=== PATIENT | female | born 1965 | race Caucasian/White ===

== ENCOUNTER 2019-08-06 17:36 | Emergency (ER) | payer OTHER ==
[2019-08-06 19:37] VITALS: BP 164/97
== END 2019-08-06 19:27 | disposition left against medical advice (07) ==
LOC: ED 17:36
DX: R10.2 Pelvic and perineal pain (principal); Z53.21 Procedure and treatment not carried out due to patient leaving prior to being seen by health care provider
CPT/HCPCS: 99281

== ENCOUNTER 2019-08-07 16:15 | Emergency (ER) | payer OTHER ==
--- NOTE | 2019-08-07 17:00 | ED ---
Abdominal Pain/Female - HPI Summary HPI Summary: 53 year old F presenting to [facility] complains of RLQ pain that radiates around hips and vaginal burning since a few days ago. Patient reports increased urge to urine, nausea, and decreased appetite. Patient denies vaginal discharge. Pt was at [facility] [employer] in a hot tub a week ago and believes this might have caused her Sx. She was prescribed Macrobid, which provided no relief, from her physician in [place] who thought she had a UTI. Her abd pain developed days after her urinary symptoms. Pt reports Hx of fibromyalgia for which she takes Cymbalta. She is also on a diet pill since a year ago and furosemide for her BP. The patient rates the pain 6/10 in severity. Symptoms aggravated by nothing. Symptoms alleviated by nothing. Medications reviewed. Allergies noted. - History of Current Complaint Chief Complaint: EDAbdPain Stated Complaint: ABD AND BACK PAIN PER PT Time Seen by Provider: 08/07/19 16:34 Hx Obtained From: Patient Hx Last Menstrual Period: 10/14/15 Onset/Duration: Lasting Days, Still Present Timing: Constant Severity Currently: Moderate Pain Intensity: 6 Pain Scale Used: 0-10 Numeric Location: Discrete At: RLQ Radiates: Yes Radiates to: Other - Hip Aggravating Factor(s): Nothing Alleviating Factor(s): Nothing Associated Signs and Symptoms: Positive: Urinary Symptoms - Increased urge for urination, Decreased Appetite, Nausea, Other: - Burning sensation in vagina. Negative: Vaginal Discharge Allergies/Adverse Reactions: Allergies Allergy/AdvReac Type Severity Reaction Status Date / Time ciprofloxacin [From Cipro] Allergy Hives Verified 08/06/19 18:00 cumin Allergy Hives Verified 08/06/19 18:00 Penicillins Allergy Hives Verified 08/06/19 18:00 Home Medications: Home Medications Furosemide TAB* [Lasix TAB*] 20 mg PO DAILY PRN 08/07/19 [History Confirmed ] Nitrofurantoin Macrocrystals* [Macrodantin 100 mg*] 100 mg PO BID 08/07/19 [ History Confirmed 08/07/19] Phentermine HCl 37.5 mg PO QAM 08/07/19 [History Confirmed 08/07/19] PMH/Surg Hx/FS Hx/Imm Hx Previously Healthy: Yes Endocrine/Hematology History: Reports: Hx Diabetes Denies: Hx Systemic Lupus Erythematosus, Hx Thyroid Disease Cardiovascular History: Reports: Hx Hypertension Denies: Hx Congestive Heart Failure, Hx Pacemaker/ICD, Hx Peripheral Vascular Disease Respiratory History: Reports: Hx Asthma Denies: Hx Chronic Obstructive Pulmonary Disease (COPD) GI History: Denies: Hx Ulcer History: Denies: Hx Dialysis, Hx Renal Disease Musculoskeletal History: Denies: Hx Arthritis, Hx Rheumatoid Arthritis, Hx Osteoporosis, Hx Scoliosis Sensory History: Denies: Hx Cataracts, Hx Contacts or Glasses, Hx Glaucoma, Hx Hearing Aid Opthamlomology History: Denies: Hx Cataracts, Hx Contacts or Glasses, Hx Glaucoma Neurological History: Denies: Hx Headaches, Hx Seizures, Hx Transient Ischemic Attacks (TIA), Other Neuro Impairments/Disorders Psychiatric History: Denies: Hx Anxiety, Hx Depression, Hx Panic Disorder - Cancer History Hx Chemotherapy: No - Surgical History Surgery Procedure, Year, and Place: . Lt MIDDLE FINGER - A CHILD - I & D FOR INFECTION Infectious Disease History: No Infectious Disease History: Denies: Hx Hepatitis, Hx Human Immunodeficiency Virus (HIV), Traveled Outside the [place] in Last 30 Days - Family History Known Family History: Positive: Cardiac Disease - Social History Alcohol Use: Daily Alcohol Amount: 1-2 glasses of red wine daily Substance Use Type: Reports: Excessive Caffeine Smoking Status (MU): Never Smoked Tobacco Review of Systems Positive: Other - decreased appetite Positive: Abdominal Pain - radiates to hips, Nausea Positive: burning - vaginal, urgency - increased urge to urinate . Negative: discharge - vaginal All Other Systems Reviewed And Are Negative: Yes Physical Exam - Summary Physical Exam Summary: Constitutional: Well-developed, Well-nourished, Alert. (-) Distressed Skin: Warm, Dry HENT: Normocephalic; Atraumatic Eyes: Conjunctiva normal Neck: Musculoskeletal ROM normal neck. (-) JVD, (-) Stridor, (-) Tracheal deviation Cardio: Rhythm regular, rate normal, Heart sounds normal; Intact distal pulses; Radial pulses are 2+ and symmetric. (-) Murmur Pulmonary/Chest wall: Effort normal. (-) Respiratory distress, (-) Wheezes, (-) Rales Abd: tenderness at McBurney's point, no rebound or guarding Musculoskeletal: (-) Edema Lymph: (-) Cervical adenopathy Neuro: Alert, Oriented x3 Psych: Mood and affect Normal Triage Information Reviewed: Yes Vital Signs On Initial Exam: Initial Vitals Temp Pulse Resp BP Pulse Ox 96.9 F 97 18 168/87 100 08/07/19 16:19 08/07/19 16:19 08/07/19 16:19 08/07/19 16:19 08/07/19 16:19 Vital Signs Reviewed: Yes Procedures - Sedation Patient Received Moderate/Deep Sedation with Procedure: No Diagnostics - Vital Signs Vital Signs Temp Pulse Resp BP Pulse Ox 08/07/19 16:19 96.9 F 97 18 168/87 100 - Laboratory Result Diagrams: 08/07/19 16:55 08/07/19 16:55 Lab Statement: Any lab studies that have been ordered have been reviewed, and results considered in the medical decision making process. - CT CT Abd/Pelvis CT Interpretation Completed By: Radiologist Summary of CT Findings: IMPRESSION: 1. Normal appendix. 2. No other acute disease seen. As above. ED physician has reviewed this report. Abdominal Pain Fem Course/Dx - Course Course Of Treatment: Patient's history of right lower quadrant pain and burning in her vagina. Patient has no discharge or bleeding. Patient was started on Macrobid for the burning with improvement in her symptoms. However, patient continues a right lower quadrant pain. Patient is overall well-appearing but does have tenderness at her appendix on exam. Patient had lower performed which is grossly unremarkable. Patient had negative UA for UTI. Patient CT scan which showed no acute abnormality. Patient has follow-up next week with an [facility] for a checkup. - Diagnoses Provider Diagnoses: RLQ abdominal pain, Nausea Discharge ED - Sign-Out/Discharge Documenting (check all that apply): Patient Departure - discharge - Discharge Plan Condition: Stable Disposition: HOME Patient Education Materials: Acute Nausea and Vomiting (ED), Abdominal Pain (ED ) Referrals: Josh Alarcon MD [Primary Care Provider] - Additional Instructions: Follow up with [facility] with scheduled appointment next week. Come back to ED if you have severe pain, unexpected vaginal bleeding, severe vomiting, or any other concerning or unexpected symptoms. Keep doing Motrin and add Tylenol for additional pain relief. - Billing Disposition and Condition Condition: STABLE Disposition: Home - Attestation Statements Document Initiated by Hailyibe: Yes Documenting Scribe: RUMA JOHN Provider For Whom Scribe is Documenting (Include Credential): NÁGELA SOTO MD Scribe Attestation: I, RUMA JOHN, scribed for ÁNGELA SOTO MD on 08/08/19 at 0708. Scribe Documentation Reviewed: Yes Provider Attestation: The documentation as recorded by the scribe, RUMA JOHN accurately reflects the service I personally performed and the decisions made by me, ÁNGELA SOTO MD Status of Scribe Document: Viewed
[2019-08-07 17:02] LABS: ABS Basophils 0.1 10^3/ul (0-0.2); ABS Eosinophils 0.2 10^3/ul (0-0.6); ABS Lymphocytes 1.2 10^3/ul (1.0-4.8); ABS Monocytes 0.5 10^3/ul (0-0.8); ABS Neutrophils 3.1 10^3/ul (1.5-7.7); Eosinophil % 3.1 %; Hematocrit 40 % (35-47); Hemoglobin 13.6 g/dL (12.0-16.0); Lymphocyte % 24.2 %; Mean Corpuscular HGB Conc 35 g/dL (31-36); Mean Corpuscular Hemoglobin 31 pg (27-31); Mean Corpuscular Volume 91 fL (80-97); Mean Platelet Volume 9.5 fL (7.4-10.4); Platelet Count 215 10^3/uL (150-450); Red Blood Count 4.38 10^6 /uL (3.70-4.87); Red Cell Distribution Width 13 % (10-15); White Blood Count 5.1 10^3/uL (3.5-10.8)
[2019-08-07 17:05] LABS: Urine Appearance Cloudy; Urine Bilirubin Negative (Negative); Urine Blood Negative (Negative); Urine Color Yellow; Urine Glucose Negative (Negative); Urine Ketones Negative (Negative); Urine Nitrite Negative (Negative); Urine Protein Negative (Negative); Urine Specific Gravity 1.021 (1.010-1.030); Urine Urobilinogen Negative (Negative)
[2019-08-07 17:23] LABS: Albumin 4.4 g/dL (3.2-5.2); Albumin/Globulin Ratio 1.5 (1-3); BUN/Creatinine Ratio 18.1 (8-20); Calcium 9.6 mg/dL (8.6-10.3); EGFR African American 75.7 (>60); EGFR Non-African American 62.5 (>60); Globulin 2.9 g/dL (2-4); Potassium 3.6 mmol/L (3.5-5.0); Total Bilirubin 0.6 mg/dL (0.2-1.0); Total Protein 7.3 g/dL (6.4-8.9)
[2019-08-07] MEDS ORDERED: Iodixanol* (CONTRAST) 320 MG/ML 100 ML SDV IV ONE (17:39)
[2019-08-07 19:02] VITALS: BP 129/85
== END 2019-08-07 19:01 | disposition home or self-care (01) ==
LOC: ED 16:15
DX: R10.31 Right lower quadrant pain (principal); R11.0 Nausea; I10 Essential (primary) hypertension; E11.9 Type 2 diabetes mellitus without complications; Z79.899 Other long term (current) drug therapy
CPT/HCPCS: 36415; 74177; 80053; 81003; 85025; 99282; Q9967